=== PATIENT | female | born 1955 | race Caucasian/White ===

== ENCOUNTER 2018-02-04 09:46 | Inpatient (IN) | payer OTHER, SELFPAY ==
[2018-01-15 12:34] VITALS: BMI 26.6
[2018-02-04] VITALS (14 sets, daily range): BP systolic 136–181; BP diastolic 63–90; PULSE 51–77; RESP 10–20; TEMP 35.9–36.8; O2SAT 93–99; BMI 24.5
[2018-02-04] MEDS: LACTATED RINGERS 1,000 ML 42 ML IV (10:56)
--- NOTE | 2018-02-04 11:12 | SUR.PREOP ---
thyroid medication to selena in pharmacy
[2018-02-04] MEDS: CEFAZOLIN 2 GM/100 ML FROZ.PIGGY IV ×2 (12:30→19:55)
--- NOTE | 2018-02-04 13:00 | SUR.OPER ---
Supine, head on gel donut. Arms padded with gel pads, tucked at sides, tape from shoulder to foot bilaterally, towel roll under shoulders. Safety belt at thigh. pillows x 2 under knees per patient request, Legs uncrossed.
--- NOTE | 2018-02-04 14:46 | DI.RAD.S_ITS ---
PROCEDURE: XR CERVICAL SPINE 2V OR 3V INDICATIONS: C4-5, C5-6 ACDF TECHNIQUE: 2 intraoperative fluoroscopic view(s) of the cervical spine were acquired. COMPARISON: None. FINDINGS: Bones: Intraoperative fluoroscopic images of cervical spine shows anterior fusion of cervical spine from C4-C6 levels with intervertebral spacer placement at C4-5 and C5-6 levels. There is straightening of normal cervical lordosis. No acute compression fracture or traumatic spondylolisthesis. Soft tissues: No prevertebral soft tissue swelling. IMPRESSION: Post anterior fusion of C4-C6 levels with anatomic spinal alignment. Dictated by: Shayan Jackson M.D. on 02/04/2018 at 15:07 Approved by: Shayan Jackson M.D. on 02/04/2018 at 15:09
[2018-02-04] MEDS: fentaNYL 100 MCG/2 ML INJ 50 MCG IV ×4 (14:55→15:28)
[2018-02-04] MEDS: HYDROMORPHONE 2 MG INJ 0.25 MG IV ×3 (14:56→15:18)
--- NOTE | 2018-02-04 15:02 | P.OP_ITS ---
Operative Date/Time/Diagnoses Date of procedure: 02/04/18 Time of procedure: 12:55 Pre-op diagnosis: 1. C4-5, C 5-6 spinal stenosis 2. C4-5, C5-6 spondylolisthesis 3. C4-5, C5-6 spondylosis with radiculopathy Post-op diagnosis: same Procedure & Clinicians Procedure: 1. C4-5, C5-6 anterior cervical diskectomy and fusion 2. C4-5, C5-6 anterior interbody cage placement 3. C4-5, C5-6 anterior instrumentation with plate and screw placement in C5-C6 and C7 vertebrae 4. Utilization of microsurgical technique and operating microscope Same procedure as scheduled: Yes Indications: Patient has been having chronic neck pain and worsening cervical radiculopathy. Patient failed multiple conservative management with worsening pain weakness and numbness in her upper extremity. Patient has been having difficulty performing activity of daily living. After discussing risks benefits of treatment options, patient elected proceed with surgery. Surgeon: Ramu Venegas Inventory Associate And Driver: Monalisa Mccloud Click Yes if Unassisted: No Anesthesia Type: General Operative Notes Closure Type: primary Specimen(s): none sent Implants & Drains: Globus Extend plate and Peek cage Estimated Blood Loss (mL): 20 Blood products transfused: none Procedure in detail: Patient was seen in the preoperative area. Risks and benefits of the surgery was discussed with the patient. Operative consent was obtained and placed in the chart. Patient was then taken to the operative room. Prophylactic antibiotic was given less than 0.5 hr prior to skin incision. General anesthesia was administered. Patient was placed into a supine position on her radiolucent table. Bilateral shoulders were taped down to allow proper C-arm imaging. Anterior cervical area was prepped and draped in a sterile fashion. Time-out was performed at this time. Using lateral C-arm imaging, the level between C4 and C6 was identified and marked on patient's neck. A oblique incision from midline towards medial border of sternocleidomastoid muscle was made. The platysma muscle was incised in line with skin incision. Metzenbaum scissor was used to develop the plane between the medial border of sternocleidomastoid d and the strap muscles medially. The carotid sheath and its contents were identified and protected behind the hand- held retractor during the entire case. The plane between the carotid sheath and strap muscles was developed with Metzenbaum scissors. Dissection was made down to the level of the anterior cervical fascia. Longus colli muscle was incised on the anterior aspect of vertebral bodies bilaterally from C4-6. Spinal needle was placed into the C4-5 disc space and confirmed with lateral C-arm imaging. Using microsurgical technique and operative microscope, anterior cervical diskectomy was performed at C4-5, C5-6 level. This was done by removing the disc material, removing the anterior and posterior osteophytes posterior longitudinal ligaments along with performing bilateral foraminotomies at both levels. Patient was found to have severe central and foraminal stenosis at both levels. Patient's stenosis was fully decompressed after decompression was completed. After the diskectomy was completed, 2 anterior interbody cages were obtained. The cages were packed with globus via cell bone grafting material. One cage each along with the bone grafting material was then packed into the interbody spaces from C4-5, C5-6 with one cage into each interbody level. After the cages were placed, the anterior cervical plate was stabilized to the C4-5, C5-6 vertebrae using 2 screws at each each level. Total 6 screws were placed. After confirming placement of the hardware with AP and lateral C-arm imaging, the screws were locked into the plate using the locking mechanism and torque limiting screwdriver. After the hardware was placed and confirmed with AP and lateral C-arm imaging, the wound was irrigated with sterile normal saline. The platysma muscle and the subcutaneous tissue was closed with 2-0 Vicryl. The skin was closed with 4- 0Monocryl and Steri-Strips. Patient tolerated the procedure well. Patient was transferred recovery room in stable condition. There were no complications. Complications: none Condition: stable Disposition: PACU Plan for aftercare: Admit to inpatient hospital
--- NOTE | 2018-02-04 15:07 | PM.PREOP ---
Pre-operative Note Interval Note Pre-op Check: Yes History & Physical Reviewed by Physician, Yes Exam Performed and Yes History & Physical exam performed today by Physician Changes: No
--- NOTE | 2018-02-04 15:22 | SUR.PHASEI ---
BEDSIDE REPORT GIVEN TO [facility]. TRANSFERED CARE OF PT TO [facility]. PT IN STABLE CONDITION, VSS.
[2018-02-04] MEDS: TRAMADOL 50 MG TABLET PO (15:27)
[2018-02-04] MEDS: SODIUM CHLORIDE 0.9% 1,000 ML 100 ML IV (16:55)
[2018-02-04] MEDS: HYDROMORPHONE 1 MG INJ 0.5 MG IV ×3 (16:55→23:29)
[2018-02-04] MEDS: OXYCODONE IR 5 MG TABLET 10 MG PO ×2 (18:34→21:36)
[2018-02-04] MEDS: MAG HYDROX/ALUM/SIMETH 30 ML UDC PO (19:55)
[2018-02-04] MEDS: SERTRALINE 25 MG TABLET PO (21:37)
[2018-02-04] MEDS: DOCUSATE 100 MG CAPSULE PO (21:37)
[2018-02-04] MEDS: LIOTHYRONINE 5 MCG TABLET PO (21:37)
[2018-02-04] MEDS: ONDANSETRON 4 MG/2 ML INJ IV (23:29)
--- NOTE | 2018-02-04 23:49 | PC.NURSE ---
Addendum entered by Adri Hull R.N. 02/05/18 05:55: States pain is improved from start of shift and rates pain as 5/10; medicated with Vistaril and ice applied to posterior neck. Up to bathroom with walker and SBA. Original Note: Addendum entered by Adri Hull R.N. 02/05/18 04:33: Has slept for a couple hours and now states pain is 6/10 so medicated with Oxycodone (no pain meds specifically ordered for pain severity of 4-6) per patient request. Original Note: Addendum entered by Adri Hull R.N. 02/05/18 02:27: Stated pain was better at 4/10 around 0200 then shortly after put call light on and states pain is back up to 7/10 so medicated with IV Dilaudid. Also complains of heartburn so given Maalox. Original Note: Addendum entered by Adri Hull R.N. 02/05/18 01:13: Complains that pain is now 6/10 so medicated with Oxycodone + Vistaril. Original Note: Patient is alert and oriented. Breath sounds CTA with RA sat of 99%. HRR but bradycardic in 50's. Had 300cc emesis reported by CHRONIC CARE NURSE so patient medicated with Zofran. BT present and abdomen is soft; passing flatus. Denies dysuria, frequency, urgency or incontinence. Able to turn self in bed. Dressing to anterior neck is CDI; wearing soft cervical collar. Complains of 7/10 pain in posterior neck radiating into bilateral shoulders and down back (up from 6/10 pain at shift change) so medicated with IV Dilaudid and ice applied. Agreeable now to having footie SCD's applied. Denies recent falls but states she has chronic balance problems and generalized numbness; fall risk score is medium but patient oriented and verbalizes agreement to call for assist when getting out of bed so alarm not applied at this time.
[2018-02-05] MEDS: OXYCODONE IR 5 MG TABLET 10 MG PO ×5 (01:11→13:59)
[2018-02-05] MEDS: hydrOXYzine pamoate 25 MG CAPSULE PO ×2 (01:11→05:53)
[2018-02-05] MEDS: HYDROMORPHONE 1 MG INJ 0.5 MG IV (02:21)
[2018-02-05] MEDS: MAG HYDROX/ALUM/SIMETH 30 ML UDC PO (02:21)
[2018-02-05] MEDS: SODIUM CHLORIDE 0.9% 1,000 ML 100 ML IV (02:25)
[2018-02-05] MEDS: CEFAZOLIN 2 GM/100 ML FROZ.PIGGY IV (04:28)
[2018-02-05 04:32] VITALS: BP 137/57; PULSE 49; RESP 20; TEMP 36.8; O2SAT 99
[2018-02-05] MEDS: LEVOTHYROXINE 50 MCG TABLET PO (05:52)
[2018-02-05 05:56] LABS: Hematocrit 42.8 % (36-46); Hemoglobin 14.4 g/dL (12.0-16.0)
--- NOTE | 2018-02-05 07:58 | PM.DS.1 ---
History of Present Illness Date Patient Seen: 02/05/18 Chief complaint: [id number] Narrative: Patient seen bedside postop day 1 status post ACDF. Patient is doing well pain is well controlled she is able to swallow. She denies nausea and vomiting. She denies chest pain shortness of breath. She would like to go home today. Discharge Providers Date of admission: 02/04/18 09:46 Consults: 02/04/18 16:31 Consult to Occupational Therapy Evaluate & Treat Comment: Physician Instructions: Evaluate and treat Consult to Physical Therapy Evaluate & Treat Comment: Physician Instructions: Evaluate and Treat Discharge provider: Giovanna Grossman PA-C Summary Discharge Diagnosis: Cervical radiculopathy Hospital Course: Patient was admitted status post ACDF on 02/04/2018. Patient tolerated the procedure well with no major complications. Patient was transferred to the acute care floor. She was seen by physical therapy recommend patient be discharged home. Patient was stable ready for discharge on 02/05/2018. Status at Discharge Cognitive/behavioral status at discharge: Alert and oriented x4 Functional status at discharge: uses cane/walker Overall status at discharge: patient is progressing back to baseline Time Spent with Patient Less than 30 minutes Exam Vital Signs (past 8 hours): - 02/05/18 04:32 Temperature 98.3 F Pulse Rate 49 L Respiratory Rate 20 Blood Pressure 137/57 L Pulse Oximetry 99 Oxygen Delivery Method Room Air Narrative Exam Narrative: The patient is well-developed well-nourished in no acute distress. Patient alert and oriented x3. Dressing on anterior neck is clean dry and intact with minimal discharge and minimal swelling. No focal deficits noted in the upper extremities. She has full range of motion of both arms. Objective Labs Result Diagrams: 02/05/18 05:30 Labs: Laboratory Results - last 24 hr 02/05/18 05:30 Hgb 14.4 Hct 42.8 Discharge Plan Discharge Plan Patient Disposition: Home Discharge Med Rec/Prescriptions Prescriptions: New docusate sodium 100 mg Capsule 100 mg PO BID Qty: 0 RF: 0 hydroxyzine pamoate 25 mg Capsule 25 mg PO Q4HR PRN (Reason: Nausea And Vomiting) Qty: 50 RF: 0 oxycodone 5 mg tablet 5 mg PO Q4-6H PRN (Reason: pain) Qty: 40 RF: 0 Continue liothyronine 5 mcg Tablet 5 mcg PO BID RF: 0 tramadol 50 mg Tablet 50 mg PO TID RF: 0 levothyroxine 50 mcg Capsule 50 mcg PO DAILY RF: 0 sertraline [Zoloft] 50 mg Tablet 25 mg PO BEDTIME RF: 0 Adrenal Cortex 1 tab PO DAILY RF: 0 Follow up/Referrals: Ramu Venegas MD [Physician] - (Follow up at previously scheduled pre-op appointment.) Provider Discharge Instructions Diet: Diet as Tolerated Activity: WBAT Cold/Heat Therapy: Apply ice 15 minutes at a time as needed for pain Skin/Wound/Dressing Care Report to your healthcare provider any signs of infection, such as:: chills, fever, night sweats, increased pain and unusual drainage Dressing: Keep dressing clean, dry, and intact. Visit Report/Discharge Packet Instructions: Oxycodone, Hydroxyzine Visit Report Forms: Stroke Signs & Symptoms Discharge Data Attending Provider: Ramu Venegas Admit Date/Time: 02/04/18 09:46 Discharges patient from system. Discharge Date/Time: 02/05/18 14:30
[2018-02-05] MEDS: DOCUSATE 100 MG CAPSULE PO (08:08)
[2018-02-05] MEDS: ADRENAL CORTEX 1 EACH PO (08:08)
[2018-02-05] MEDS: LIOTHYRONINE 5 MCG TABLET PO (08:08)
[2018-02-05 08:46] VITALS: BP 134/74; PULSE 64; RESP 18; TEMP 36.7; O2SAT 98
--- NOTE | 2018-02-05 08:52 | PC.NURSE ---
Addendum entered by Dione Fenton R.N. 02/05/18 09:22: Pt walked in [place] with therapy, gait is steady and cleared to be up indep by therapy. Original Note: Pt alert, oriented, rates pain 7/10 to posterior neck and shoulders, medicated with 10mg oxycodone. Dressing to anterior neck CDI, soft collar in place. Denies nausea and difficulty swallowing.
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
== END 2018-02-05 14:30 | disposition home or self-care (01) | DRG 473 ==
PROVIDERS: Admitting Provider Orthopaedic Surgery Orthopaedic Surgery of the Spine; Visit Provider Orthopaedic Surgery Orthopaedic Surgery of the Spine
PROC: 0RG20A0 Fusion of 2 or more Cervical Vertebral Joints with Interbody Fusion Device, Anterior Approach, Anterior Column, Open Approach (ICD-10-PCS; principal; 2018-02-04 11:15)
DX: M48.02 Spinal stenosis, cervical region (principal); M47.22 Other spondylosis with radiculopathy, cervical region; E03.9 Hypothyroidism, unspecified; G40.909 Epilepsy, unspecified, not intractable, without status epilepticus; I10 Essential (primary) hypertension; M79.7 Fibromyalgia; M43.12 Spondylolisthesis, cervical region
CPT/HCPCS: 36415; 72040; 76001; 85014; 85018; 97161; 97165; 97535; C1776; J0360; J0690; J1100; J1170; J2405; J2704; J3010